=== PATIENT | female | born 1955 | race Caucasian/White ===

== ENCOUNTER 2019-08-26 11:20 | Inpatient (IN) | payer MEDICARE ==
[~2019-08-26] VITALS: Ht 154.9 cm; Wt 100.0 kg
[~2019-08-26 11:20] MED LIST: CRESTOR 10MG10 MG PO; EFFEXOR-XR150 MG PO; FOSAMAX5 MG PO; KLONOPIN2 MG PO; LASIX 20MG TABL20 MG PO; LEVOXYL0.05 MG PO; LORTAB 5/500 501 TAB PO; MOBIC 7.5MG7.5 MG PO; MULTI VITAMINS1 TAB PO; NIASPAN 500MG500 MG PO; PERCOCET 325 MG1 TA2 PO; TOPROL XL 25MG25 MG PO; VITAMIN D32000 I1 PO; ZETIA 10MG TAB10 MG PO; ZOCOR 20MG20 MG PO
[2019-08-26 12:00] LABS: BASO % 0.2 % (0.0-2.0); EOS # 0.1 (0.0-0.7); EOS % 0.6 % (0-4.0); GRAN # 7.7 (1.4-6.5); GRAN % 67.6 % (42.2-75.2); HEMATOCRIT 36.1 % (37.0-47.0); HEMOGLOBIN 11.8 g/dl (12.5-16.0); LYMPH # 2.5 (1.2-3.4); LYMPH % 22.3 % (20.0-51.0); MEAN CELL VOLUME 94 fl (80.0-100.0); MEAN CORPUSCULAR HEMOGLOBIN 31 pg (27.0-31.0); MEAN CORPUSCULAR HGB CONC 33 g/dl (33.0-37.0); MEAN PLATELET VOLUME 9.2 fl (7.4-10.4); MONO # 0.9 (0.1-0.6); MONO % 8.2 % (1.7-9.3); PLATELET COUNT 278 K/mm3 (130-400); RED BLOOD COUNT 3.86 M/mm3 (4.10-5.30); REDCELL DISTRIBUTION WIDTH-CV 18.1 % (11.5-14.5)
[2019-08-26] MEDS ORDERED: FLEXERIL 1010 MG/TAB PO (12:05)
[2019-08-26] MEDS ORDERED: ROXICODONE 55 MG/TAB PO (12:10)
[2019-08-26 12:11] LABS: ALBUMIN 4.4 gm/dL (3.5-5.0); BILIRUBIN,TOTAL 0.7 mg/dL (0.0-1.0); C-REACTIVE PROTEIN 2.5 mg/dL (0.0-0.9); CALCIUM 8.9 mg/dL (8.4-10.2); CREATININE, serum 0.45 (0.52-1.25); POTASSIUM 4.3 mmol/L (3.4-5.0); TOTAL PROTEIN 7.5 gm/dL (6.4-8.2)
[2019-08-26] MEDS ORDERED: CELEBREX 1100 MG/CAP PO (12:11)
[2019-08-26] MEDS ORDERED: DALIRESP500 MCG PO (12:12)
[2019-08-26] MEDS ORDERED: ELIQUIS 5MG PO (12:12)
[2019-08-26] MEDS ORDERED: MUCINEX1200 MG PO (12:13)
[2019-08-26 12:14] LABS: INR 0.9 (0.8-3.0)
[2019-08-26] MEDS ORDERED: INCRUSE EL62.5 MCG/A IH (12:14)
[2019-08-26] MEDS ORDERED: GLUCOPHAGE500 MG/TAB PO (12:15)
[2019-08-26] MEDS ORDERED: TREXALL5 MG PO (12:15)
[2019-08-26] MEDS ORDERED: SINGULAIR 110 MG/TAB PO (12:16)
[2019-08-26] MEDS ORDERED: NORCO 325 MG-7.1 TAB PO ×2 (12:17→12:18)
[2019-08-26] MEDS ORDERED: PROAIR HFA0.09 MG/AC IH (12:18)
[2019-08-26] MEDS ORDERED: PREDNISONE 5MG5 MG PO (12:19)
[2019-08-26] MEDS ORDERED: ASPIRIN 81M81 MG/TA2 PO (12:19)
[2019-08-26] MEDS ORDERED: FISH OIL 1000MG1 CAP PO (12:20)
[2019-08-26 12:21] LABS: TROPONIN-I 0.014 ng/mL (0.000-0.035)
[2019-08-26 16:06] LABS: COLLECTION METHOD CLEAN CATCH
[2019-08-26 16:16] LABS: PH 6 (5-8); SQUAMOUS EPITHELIAL 0-2 /hpf; URINE APPEARANCE Clear; URINE BACTERIA None Seen /hpf; URINE BILIRUBIN Negative (NEGATIVE); URINE BLOOD Negative (NEGATIVE); URINE COLOR Yellow; URINE GLUCOSE Negative (NEGATIVE); URINE KETONE Negative (NEGATIVE); URINE LEUKOCYTE ESTERASE Negative (NEGATIVE); URINE NITRATE Negative (NEGATIVE); URINE PROTEIN(semi-quant) Negative (NEGATIVE); URINE RBC 0-2 /hpf; URINE UROBILINOGEN Negative (NEGATIVE)
[2019-08-26 19:08] VITALS: BP 147/75; PULSE 80; TEMP 98
--- NOTE | 2019-08-26 19:50 | NUR ---
Received report from YOLANDE Fraga . Pt currently sitting up the side of her bed and her call light is within reach.
--- NOTE | 2019-08-26 20:00 | NUR ---
Pt is currently sitting up on the side of the bed. Pt stated that she has been having pain whenever she sneezing and coughing. She stated that she is having some swelling in her abdomen. She informed me that she was schduled to have a biopsy but she was going to have a PET scan done today but he machine was broken. She was informed that I was going to talk to the hospitalist about her pain medciation. Pt has her call light within reach and her bed is in lowest position.
--- NOTE | 2019-08-26 22:15 | NUR ---
Pt called out stated that she was having pain that was moving up higer. Pt vitals were checked at this time. Pt vitals were 142/86, HR 92 and her O2 was 98% with 2 liters of oxygen. Hospitalist was contacted at this time. Pt was assessed and Hospitalist Jennyfer Torres wrote and order for oral pain medication, as well as a pain patch,pt also had an order for medication for her anxiety. Pt has her call light within reach. Pt also was informed that I would return with her pain medication.
--- NOTE | 2019-08-26 22:30 | NUR ---
Pt was given oral pain medication at this time. Pt pain patch was also place on her back at this time. Pt has her call light within and her bed is in lowest position .
[2019-08-26 23:08] VITALS: BP 129/83; PULSE 75; TEMP 98.6
[2019-08-27 03:45] VITALS: BP 155/69; PULSE 83; TEMP 98.3
--- NOTE | 2019-08-27 04:30 | NUR ---
Pt currently sleeping in bed. Pt has her call light within reach. Her bed is also in lowest position.
--- NOTE | 2019-08-27 07:41 | NUR ---
Reported off to YOLANDE Mujica. Pt was assisted to the bedside commode. Nurse is at pt bedside. Pt called out around 0640 requesting something for pain, pt was given pain medication at this time.
[2019-08-27 07:57] VITALS: BP 146/81; PULSE 89; TEMP 98.7
--- NOTE | 2019-08-27 08:08 | NUR ---
Patient is alert and oriented. complain of back pain at 5/10. dyspnea at exertion. can no stand on her feets due to numbness. resting in bed at this time
[2019-08-27 08:51] LABS: BASO % 0.3 % (0.0-2.0); EOS # 0.1 (0.0-0.7); EOS % 1.4 % (0-4.0); GRAN # 6.6 (1.4-6.5); GRAN % 73.6 % (42.2-75.2); HEMATOCRIT 40.2 % (37.0-47.0); HEMOGLOBIN 12.6 g/dl (12.5-16.0); LYMPH # 1.4 (1.2-3.4); MEAN CELL VOLUME 94 fl (80.0-100.0); MEAN CORPUSCULAR HEMOGLOBIN 29 pg (27.0-31.0); MEAN CORPUSCULAR HGB CONC 31 g/dl (33.0-37.0); MEAN PLATELET VOLUME 9.4 fl (7.4-10.4); MONO # 0.8 (0.1-0.6); MONO % 8.9 % (1.7-9.3); PLATELET COUNT 309 K/mm3 (130-400); RED BLOOD COUNT 4.28 M/mm3 (4.10-5.30); REDCELL DISTRIBUTION WIDTH-CV 18.1 % (11.5-14.5)
[2019-08-27 09:09] LABS: CALCIUM 8.8 mg/dL (8.4-10.2); CREATININE, serum 0.46 (0.52-1.25); POTASSIUM 3.4 mmol/L (3.4-5.0)
[2019-08-27 12:24] VITALS: BP 119/62; PULSE 61; TEMP 98.6
[2019-08-27 12:41] VITALS: BP 103/65; PULSE 108
--- NOTE | 2019-08-27 13:40 | NUR ---
Chaplain bautista and offered support with patient.
[2019-08-27 18:05] VITALS: BP 127/54; PULSE 66; TEMP 98.8
--- NOTE | 2019-08-27 18:11 | NUR ---
EKG confirm patient episode of Afib this morning with HR in 140's. 10mg Lopressor IV once was order by ERICH Carrasco. Patient converted by to Sinus rythm, with heart rate within limit. Patient had L-SPINE and T-SPINE MRI today.
--- NOTE | 2019-08-27 18:41 | NUR ---
Patient was started on Sotalol 80mg BID PO for AFIB by Dr Dawn
[2019-08-27 20:03] VITALS: BP 117/52; PULSE 64; TEMP 98.4
--- NOTE | 2019-08-27 20:10 | NUR ---
Patient assessed at this time. Alert and oriented x 4, and able to make needs known. Reported pain to back. Given PRN Percocet as requested for pain. Peripheral INT to right hand flushed. Site without redness, warmth, swelling, and pain. Denies having SOB and dyspnea. On oxygen at 3 L/min via NC, baseline for patient. LS CTA in upper lobes, diminished in lower. Respirations even and unlabored. HRR. Telemetry in place: normal sinus. Received Sotalol per orders. Denies having chest pain and discomfort. Capillary refill less than 3 seconds. Non-tenting skin turgor. BSAx4. Abdomen soft, reports numbness to abdomen, but no longer in legs. Able to move legs in bed. High fall risk precautions remain in place to due weakness/unsteady. 1+ edema BLE. Voices no questions, needs, or concerns at this time. Resting in bed with call light within reach.
[2019-08-28 01:19] VITALS: BP 118/95; PULSE 50; TEMP 98.2
[2019-08-28 06:02] VITALS: BP 121/51; PULSE 52; TEMP 98
--- NOTE | 2019-08-28 06:03 | NUR ---
Patient has not requested any further PRN medication for pain this shift. Reports that she has level 6 pain, but that is her "usual." Patient reports being able to sleep better tonight. Voices no questions, needs, or concerns at this time. Resting in bed with call light within reach.
[2019-08-28 07:28] VITALS: BP 129/57; PULSE 61; TEMP 98.7
--- NOTE | 2019-08-28 08:33 | NUR ---
PATIENT ASSESSMENT COMPLETED. SHE DOES COMPLAIN OF MIDDLE BACK PAIN. LIDOCAINE PATCH IS APPLIED AND PERCOCET X1 GIVEN ALSO PER HER REQUEST. SHE WAS ABLE TO GO TO THE BEDSIDE COMMODE WITH GAITBELT AND 2 ASSIST. SHE DOES HAVE SOME NUMBNESS TO HER LOWER EXTREMETIES THIS MORNING BUT ABLE TO USE BOTH LEGS.
[2019-08-28 11:23] VITALS: BP 138/68; PULSE 56; TEMP 98.6
--- NOTE | 2019-08-28 15:10 | NUR ---
Plan: Plans to return home with home health care supports. Home health care still needs to be selected and plan may change after proceedure. Assessment: SW met with patient about DC plan. Patient reports that she is currently alone at home and her is in the ICU at the [facility]. Patient reports that she is wanting home health services. Patient reports that she has DME use of O2 at 3 liters CC Flow. Patient indicated that that her DPOA is Geri Christianson at . Patient reports that she uses [facility] for RX. Patient reports that she is unsure of what she will need after her proceedure. Patient indicated that she would like to change her DPOA. Action: SW gave patient DPOA paperwork and educated her about notary during the week. Patient was given a medicare.gov resource sheet to select a Home health care provider. SW will need to follow-up to complete DC coordination of care. Educated patient on community supports, home health care and DPOA change.
[2019-08-28 15:45] VITALS: BP 140/52; PULSE 57; TEMP 98.6
--- NOTE | 2019-08-28 19:14 | NUR ---
PATIENT WAS UP TO THE BEDSIDE COMMODE.SHE DOES WELL STANDING BUT DOESN'T WANT TO MOVE HER FEET WITH CONFIDENCE TO TRANSFER BACK TO THE BED. SHE IS HAVING BACK PAIN, PRN MEDICATION WAS GIVEN ALREADY. SHE WILL REST IN THE BED AND SEE IF THE PAIN PILL WILL START TO HELP
[2019-08-28 19:35] VITALS: BP 115/50; PULSE 60; TEMP 98.6
--- NOTE | 2019-08-28 22:24 | NUR ---
Pt assessment completed. Pt alert and oriented x4. Complaints of 7/10 pain that is aching. Pt states pain is "tolerable" and states she does not need anything for pain at this time. INT to right hand patent and free of complications. Pt denies any other needs at this time. Call light within reach. Will continue to monitor.
[2019-08-29] VITALS (7 sets, daily range): BP systolic 100–146; BP diastolic 50–67; PULSE 59–68; TEMP 98.1–98.5
--- NOTE | 2019-08-29 03:30 | NUR ---
Patient given PRN Percocet as requested.
--- NOTE | 2019-08-29 06:16 | NUR ---
Pt had uneventful shift. Pt rested on and off throughout the night. Complaints of back pain to her mid back. PRN percocet given x1 per orders for back pain. INT to right hand patent and free of complications. Pt on 3L O2 via nasal cannula. Pt denies any other needs at this time. Fall precautions in place. Bed alarm on. Call light within reach. Will continue to monitor.
[2019-08-29 08:09] LABS: BASO % 0.5 % (0.0-2.0); EOS # 0.2 (0.0-0.7); EOS % 2.2 % (0-4.0); GRAN # 5.6 (1.4-6.5); GRAN % 67.9 % (42.2-75.2); HEMATOCRIT 39.3 % (37.0-47.0); HEMOGLOBIN 12.8 g/dl (12.5-16.0); LYMPH # 1.7 (1.2-3.4); MEAN CELL VOLUME 93 fl (80.0-100.0); MEAN CORPUSCULAR HEMOGLOBIN 30 pg (27.0-31.0); MEAN CORPUSCULAR HGB CONC 33 g/dl (33.0-37.0); MEAN PLATELET VOLUME 9.3 fl (7.4-10.4); MONO # 0.7 (0.1-0.6); MONO % 8.3 % (1.7-9.3); PLATELET COUNT 298 K/mm3 (130-400); RED BLOOD COUNT 4.22 M/mm3 (4.10-5.30); REDCELL DISTRIBUTION WIDTH-CV 17.4 % (11.5-14.5)
[2019-08-29 08:44] LABS: CALCIUM 8.6 mg/dL (8.4-10.2); CREATININE, serum 0.47 (0.52-1.25); POTASSIUM 4.1 mmol/L (3.4-5.0)
--- NOTE | 2019-08-29 10:45 | NUR ---
Assessment complete. Patient sitting up in bed. Requests pain medication, PRN fentynal was applied per orders to the back of her right arm. She stated the old patch was on the back of her neck but this could not be located. Reports the pain in her back and her abdomen. States otherwise she feels pretty good and that she wants to go home. Today is day 2 of sotalol, no abnormal symptoms. IV site is CD&I, flushed well. No other needs were expressed at this time. Call light is in reach, bed alarm set.
--- NOTE | 2019-08-29 15:30 | NUR ---
PT REPORTED THAT PAIN WAS BOTHERING HER. SHE STATES IT IS IN HER CHEST AREA AND THAT ITS LIKE A SHOCKING PAIN AND NOT AN ACHE. PRN PAIN MEDICATION WAS PROVIDED FOR THIS. PT RESTING COMFPRTABLY NOW. NO OTHER NEEDS WERE EXPRESSED AT THIS TIME, CALL LIGHT IS IN REACH. PT STATES SHE IS COMFORTABLE.
[2019-08-29 15:53] LABS: MUCOUS Present /lpf; PH 6 (5-8); SQUAMOUS EPITHELIAL 0-2 /hpf; URINE APPEARANCE Cloudy; URINE BACTERIA Many /hpf; URINE BILIRUBIN Negative (NEGATIVE); URINE BLOOD 2+ (NEGATIVE); URINE COLOR Amber; URINE GLUCOSE Negative (NEGATIVE); URINE KETONE Negative (NEGATIVE); URINE LEUKOCYTE ESTERASE 3+ (NEGATIVE); URINE NITRATE Positive (NEGATIVE); URINE PROTEIN(semi-quant) Negative (NEGATIVE); URINE RBC 20-50 /hpf; URINE UROBILINOGEN >=4.0 mg/dL (NEGATIVE)
--- NOTE | 2019-08-29 20:37 | NUR ---
PT DOES NOT WEAR THE CPAP HERE THEREFORE IT IS TAKEN OUT OF THE PTS ROOM AND CLEANED.
--- NOTE | 2019-08-29 20:40 | NUR ---
Pt assessmeent completed and documented. Pt alert and oriented x4. Complaints of aching pain to upper abdomen that radiates around to her back when coughing. Pt rates pain 7/10. INT to right hand patent and free of complications. Pt denies any other needs at this time. Fall precautions in place. Bed alarm on. Call light within reach. Will continue to monitor
[2019-08-29 21:18] LABS: COLLECTION METHOD CLEAN CATCH
[2019-08-30 03:50] VITALS: BP 137/59; PULSE 62; TEMP 98.1
--- NOTE | 2019-08-30 05:26 | NUR ---
Pt had uneventful shift. Pt stated she rested well throughout the night. Complaints of pain to upper abdomen that radiates to back when coughing throughout shift. PRN percocet given x1 per orders. INT to right hand patent and free of complications. Pt on 3L O2 via nasal cannula. Pt denies any other needs at this time. Fall precautions in place. Bed alarm on. Call light within reach. Will continue to monitor.
[2019-08-30 05:52] VITALS: TEMP 100.3
[2019-08-30 07:19] LABS: BASO % 0.2 % (0.0-2.0); EOS % 0.1 % (0-4.0); GRAN # 7.6 (1.4-6.5); GRAN % 88.5 % (42.2-75.2); HEMATOCRIT 39.1 % (37.0-47.0); HEMOGLOBIN 12.4 g/dl (12.5-16.0); LYMPH # 0.8 (1.2-3.4); LYMPH % 9.2 % (20.0-51.0); MEAN CELL VOLUME 95 fl (80.0-100.0); MEAN CORPUSCULAR HEMOGLOBIN 30 pg (27.0-31.0); MEAN CORPUSCULAR HGB CONC 32 g/dl (33.0-37.0); MEAN PLATELET VOLUME 9.9 fl (7.4-10.4); MONO # 0.1 (0.1-0.6); MONO % 1.2 % (1.7-9.3); PLATELET COUNT 324 K/mm3 (130-400); RED BLOOD COUNT 4.13 M/mm3 (4.10-5.30); REDCELL DISTRIBUTION WIDTH-CV 17.2 % (11.5-14.5)
[2019-08-30 07:26] VITALS: BP 139/55; PULSE 68; TEMP 99.3
[2019-08-30 07:40] LABS: CALCIUM 8.9 mg/dL (8.4-10.2); CREATININE, serum 0.46 (0.52-1.25); POTASSIUM 4.6 mmol/L (3.4-5.0)
--- NOTE | 2019-08-30 08:28 | NUR ---
(late entry 08/28) OT was recommending post acute rehab. SW met with the patient to discuss placement. The patient is from [place] and chose [facility]. SW faxed referrals. Awaiting responses.
--- NOTE | 2019-08-30 08:53 | NUR ---
Bisi from [facility] contacted STACIA. She has some questions regarding the patient's stay at post acute rehab. They are still reviewing the referral. Will continue to monitor.
--- NOTE | 2019-08-30 10:07 | NUR ---
STACIA met with the patient to provide update from referrals. SW provided and discussed DPOA-HC form. The patient will discuss the form with her family. Will continue to monitor.
[2019-08-30 12:04] VITALS: BP 135/60; PULSE 69; TEMP 98.2
--- NOTE | 2019-08-30 13:42 | NUR ---
The patient is to be transferred to [facility] in [place] for further care. STACIA met with the patient to discuss the transfer. The patient requested hospitalist contact her [id number], June (ph# [phone]). SW informed hospitalist. STACIA contacted [facility] and [facility] to inform them of the transfer. STACIA collaborated the above information with the team.
--- NOTE | 2019-08-30 15:00 | NUR ---
REPORT GIVEN TO MELITON AT [facility]. PT IS GOING TO ROOM #[id number] AND WAS TAKEN BY [facility] TODAY. PT IS IN [facility], AND IS LOOKING FORWARD TO GOING TO [facility].
== END 2019-08-30 15:00 | disposition short-term general hospital (02) | DRG 543 ==
LOC: COL.ER 11:20 → MEDICAL 15:06
PROVIDERS: Emergency Medicine; Physician Assistant; Student in an Organized Health Care Education/Training Program; ADMIT Family Medicine
DX: M84.58XA Pathological fracture in neoplastic disease, other specified site, initial encounter for fracture (principal); J96.11 Chronic respiratory failure with hypoxia; C34.90 Malignant neoplasm of unspecified part of unspecified bronchus or lung; C78.7 Secondary malignant neoplasm of liver and intrahepatic bile duct; C79.51 Secondary malignant neoplasm of bone; C79.89 Secondary malignant neoplasm of other specified sites; G95.29 Other cord compression; J44.9 Chronic obstructive pulmonary disease, unspecified; Z99.81 Dependence on supplemental oxygen; M06.9 Rheumatoid arthritis, unspecified; G89.29 Other chronic pain; M79.7 Fibromyalgia; E05.00 Thyrotoxicosis with diffuse goiter without thyrotoxic crisis or storm; G47.33 Obstructive sleep apnea (adult) (pediatric); I25.10 Atherosclerotic heart disease of native coronary artery without angina pectoris; E86.0 Dehydration; K59.00 Constipation, unspecified; F41.9 Anxiety disorder, unspecified; I48.0 Paroxysmal atrial fibrillation; E78.5 Hyperlipidemia, unspecified; D72.829 Elevated white blood cell count, unspecified; Z79.01 Long term (current) use of anticoagulants; Z87.891 Personal history of nicotine dependence; Z88.0 Allergy status to penicillin; Z88.2 Allergy status to sulfonamides; Z79.82 Long term (current) use of aspirin; Z80.1 Family history of malignant neoplasm of trachea, bronchus and lung
CPT/HCPCS: 99232-AI; 99233-AI; 99239; A9503; A9585; G0378; J1100; J2270; J7030; Q9967